=== PATIENT | female | born 1955 | race Caucasian/White ===

== ENCOUNTER → 2021-09-21 | Outpatient (CLI) | payer OTHER ==
--- NOTE | 2021-09-21 11:03 | KCIC ---
INDICATION : Routine Screening. COMPARISON: March 2020 TECHNIQUE: Standard mammogram screening views of the bilateral breasts were obtained. CAD was utilize d. FINDINGS: The breasts are scattered density. No definite suspicious mass. Unchanged cluster of calcifications within the left breast. IMPRESSION: BI-RADS Category 2: Benign findings. Recommend routine screening exam in one year. The patient was placed into the recall system with a suggested recall date for follow up imaging. Mammography is the most sensitive method for finding small breast cancers, but it does not detect the m all and is not a substitute for careful clinical examination. A negative mammogram does not negate a clinically suspicious finding and should not result in delay in biopsying a clinically suspicious abnormality. Electronically signed by: Sadiq Tillman MD (09/21/2021 11:01 AM) [id number]
--- NOTE | 2021-09-21 15:29 | KCIC ---
Bone densitometry. Clinical history: Postmenopausal female. Lumbar spine: L1-L4. The technical acquisition is adequate. The bone mineral density across the aggregate of L1-L4 is 1.31 5 gm/cm2. This corresponds to a T-score of 2.4 which is consistent with normal bone mineral density. At this bone density level, fracture risk is normal. Hip: Left. The technical acquisition is adequate. The lowest bone mineral density between the neck and total fem ur occurs at the the left total femur and is 0.974 gm/cm2. This corresponds to a T-score of 0.3 which is consistent with normal bone mineral density. At this bone density level, fracture risk is normal. Impression: 1. Normal bone mineral density of the lumbar spine and left femur. Note: T-Score definitions established by the [employer]: 1. Normal: T-score is -1.0 or above. 2. Osteopenia: T-score is between -1.0 and -2.5. 3. Osteoporosis: T-score is -2.5 or below. For patients in whom the T-Score does not apply, a Z-Score below -2.0 is consistent with abnormal bon e mineral density. Electronically signed by: Luis M Mg MD (09/21/2021 3:26 PM) [id number]
== END ==
LOC: KCIC MAMMO 08:48
PROVIDERS: ATTEND Obstetrics & Gynecology
DX: Z12.31 Encounter for screening mammogram for malignant neoplasm of breast (principal); N95.9 Unspecified menopausal and perimenopausal disorder
CPT/HCPCS: 77067; 77080